=== PATIENT | male | born 1980 | race Caucasian/White ===

== ENCOUNTER 2021-05-04 09:51 | Emergency (ER) | payer SELFPAY ==
--- NOTE | 2021-05-04 11:21 | CR ---
Left foot: 4 views of the left foot were obtained. Comparison: No prior foot exam is available. Soft tissue swelling is noted around the fifth toe. No focal erosions are seen within the osseous structures. No acute fracture or other abnormality is appreciated. Impression: 1. Soft tissue swelling within the fifth toe. 2. No acute osseous abnormality is appreciated. Diagnostic code #2
[2021-05-04] MEDS ORDERED: cefTRIAXone 1 GM, Lidocaine 1% 2.1 ML IM ONE ×2 (13:00)
--- NOTE | 2021-05-04 13:08 | EDM.PDOC ---
ED HPI GENERAL MEDICAL PROBLEM - General Chief Complaint: Diabetic Complaint Stated Complaint: TOE INFECTION Time Seen by Provider: 05/04/21 10:16 Source of Information: Reports: Patient History Limitations: Reports: No Limitations - History of Present Illness INITIAL COMMENTS - FREE TEXT/NARRATIVE: The patient presents with a toe infection and elevated blood sugar. He went to the walk in clinic yesterday for an infection of his 5th and 4th left toes. He has no fever, chills or cough. They did labs and a culture. He was given some doxycycline but he did not get it picked up. They called him today to come to the ER because his blood sugar was 452. He has no increased thirst or urination. Onset: Gradual Duration: Day(s): Location: Reports: Lower Extremity, Left (5th and 4th toes) Quality: Reports: Ache Severity: Mild Improves with: Reports: None Worsens with: Reports: None Associated Symptoms: Reports: No Other Symptoms - Related Data Allergies Allergy/AdvReac Type Severity Reaction Status Date / Time No Known Allergies Allergy Verified 05/04/21 10:14 Home Meds: Home Meds Doxycycline [Vibra-Tabs] 100 mg PO BID 05/04/21 [History] Doxycycline [Vibra-Tabs] 100 mg PO Q12HR #20 tab 05/04/21 [Rx] Insulin Aspart [NovoLOG] 0 unit WITHMEALSANDBED 05/04/21 [History] Insulin Glarg,Human.Rec.Analog [Lantus] 60 units SQ DAILY 05/04/21 [History] atorvaSTATin Calcium [Lipitor] 20 mg PO DAILY 05/04/21 [History] metFORMIN [Glucophage XR] 1,000 mg PO BIDMEALS 05/04/21 [History] Past Medical History Cardiovascular History: Reports: High Cholesterol Endocrine/Metabolic History: Reports: Diabetes, Type I Social & Family History - Tobacco Use Tobacco Use Status *Q: Never Tobacco User ED ROS GENERAL - Review of Systems Review Of Systems: See Below Constitutional: Reports: No Symptoms HEENT: Reports: No Symptoms Respiratory: Reports: No Symptoms Cardiovascular: Reports: No Symptoms Endocrine: Reports: No Symptoms GI/Abdominal: Reports: No Symptoms : Reports: No Symptoms Musculoskeletal: Reports: Other (Left 5th anad 4th toe infections) ED EXAM GENERAL NO PERIP PULSE - Physical Exam Exam: See Below Exam Limited By: No Limitations General Appearance: Alert, No Apparent Distress Ears: Normal External Exam Nose: Normal Inspection Head: Atraumatic, Normocephalic Neck: Normal Inspection Respiratory/Chest: No Respiratory Distress, Lungs Clear, Normal Breath Sounds Cardiovascular: Regular Rate, Rhythm, No Edema, No Murmur GI/Abdominal: Soft, Non-Tender, No Organomegaly, No Mass Back Exam: Normal Inspection Extremities: Other (Erythema, edema and an ulcer to the left 5th toe. Erythema and some skin break down to the 4th left toe.) Course - Vital Signs Last Recorded V/S: Last Vital Signs Temp 98.5 F 05/04/21 10:16 Pulse 82 05/04/21 10:16 Resp 16 05/04/21 10:16 BP 144/92 H 05/04/21 10:16 Pulse Ox 99 05/04/21 10:16 - Orders/Labs/Meds Orders: Active Orders 24 hr Category Date Time Status Cardiac Monitoring [RC] . DIRECTED Care 05/04/21 10:46 Active C-REACTIVE PROTEIN [CHEM] Stat Lab 05/04/21 11:00 Results COMPREHENSIVE METABOLIC PN,CMP [CHEM] Stat Lab 05/04/21 11:00 Results OSMOLALITY,SERUM [CHEM] Stat Lab 05/04/21 11:00 Results cefTRIAXone 1 GM withLidocaine 1% 2.1 ML IM Onetime Med 05/04/21 13:00 Ordered cefTRIAXone [Rocephin] 1 gm Lidocaine 1% [Xylocaine 1%] 2.1 ml IM ONETIME Labs: Laboratory Tests 05/04/21 05/04/21 05/04/21 Range/Units 11:00 11:00 11:00 WBC 8.29 (4.23-9.07) K/mm3 RBC 5.81 (4.63-6.08) M/mm3 Hgb 16.9 (13.7-17.5) gm/dl Hct 48.7 (40.1-51.0) % MCV 83.8 (79.0-92.2) fl MCH 29.1 (25.7-32.2) pg MCHC 34.7 (32.2-35.5) g/dl RDW Std Deviation 38.6 (35.1-43.9) fL Plt Count 183 (163-337) K/mm3 MPV 11.3 (9.4-12.3) fl Neut % (Auto) 73.1 H (34.0-67.9) % Lymph % (Auto) 19.9 L (21.8-53.1) % [place] % (Auto) 6.2 (5.3-12.2) % Eos % (Auto) 0.5 L (0.8-7.0) Baso % (Auto) 0.2 (0.1-1.2) % Neut # (Auto) 6.06 H (1.78-5.38) K/mm3 Lymph # (Auto) 1.65 (1.32-3.57) K/mm3 [place] # (Auto) 0.51 (0.30-0.82) K/mm3 Eos # (Auto) 0.04 (0.04-0.54) K/mm3 Baso # (Auto) 0.02 (0.01-0.08) K/mm3 Sodium 138 (136-145) mEq/L Potassium 4.1 (3.5-5.1) mEq/L Chloride 99 (98-107) mEq/L Carbon Dioxide 31 (21-32) mEq/L Anion Gap 12.1 (5-15) BUN 16 (7-18) mg/dL Creatinine 0.9 (0.7-1.3) mg/dL Est Cr Clr Drug Dosing 133.95 mL/min Estimated GFR (MDRD) > 60 (>60) mL/min BUN/Creatinine Ratio 17.8 (14-18) Glucose 333 H (70-99) mg/dL Calcium 9.8 (8.5-10.1) mg/dL Total Bilirubin 0.5 (0.2-1.0) mg/dL AST 11 L (15-37) U/L ALT 23 (16-63) U/L Alkaline Phosphatase 103 (46-116) U/L C-Reactive Protein 1.2 H* (<1.0) mg/dL Total Protein 8.1 (6.4-8.2) g/dl Albumin 4.2 (3.4-5.0) g/dl Globulin 3.9 gm/dL Albumin/Globulin Ratio 1.1 (1-2) Ketones 0.20 (0.0-0.3) mM - Re-Assessments/Exams Free Text/Narrative Re-Assessment/Exam: 05/04/21 13:05 I ordered labs and an x-ray of his toes. The x-ray shows soft tissue swelling within the 5th toe. No acute osseous abnormality is appreciated. His CBC looks good. His glucose is elevated at 333. His CRP is elevated at 1.2. His ketones are 0.2. I have ordered rocephin 1 gram IM. I will also get him on some doxycycline and have him follow up with Dr Marquis. Departure - Departure Time of Disposition: 13:10 Disposition: Home, Self-Care 01 Condition: Good Clinical Impression: Hyperglycemia, Toe infection - Discharge Information *PRESCRIPTION DRUG MONITORING PROGRAM REVIEWED*: Not Applicable *COPY OF PRESCRIPTION DRUG MONITORING REPORT IN PATIENT MISSY: Not Applicable Prescriptions: Doxycycline [Vibra-Tabs] 100 mg PO Q12HR #20 tab Referrals: PCP,None [Primary Care Provider] - Jaun Marquis II, DPM [Physician] - 1 Week Additional Instructions: Take the doxycycline 2 times per day for 10 days. Take tylenol or motrin as needed for pain or fever. Soak your foot in warm soapy water 2 times per day and apply antibiotics ointment after. Follow up with Dr Marquis within a week. Please return if you are worse. Sepsis Event Note (ED) - Evaluation Sepsis Screening Result: No Definite Risk - Focused Exam Vital Signs: Vital Signs Temp Pulse Resp BP Pulse Ox 05/04/21 10:16 98.5 F 82 16 144/92 H 99 - My Orders Last 24 Hours: My Active Orders 05/04/21 10:46 Cardiac Monitoring [RC] . DIRECTED 05/04/21 11:00 C-REACTIVE PROTEIN [CHEM] Stat COMPREHENSIVE METABOLIC PN,CMP [CHEM] Stat OSMOLALITY,SERUM [CHEM] Stat 05/04/21 13:00 cefTRIAXone 1 GM withLidocaine 1% 2.1 ML IM Onetime cefTRIAXone [Rocephin] 1 gm Lidocaine 1% [Xylocaine 1%] 2.1 ml IM ONETIME - Assessment/Plan Last 24 Hours: My Active Orders 05/04/21 10:46 Cardiac Monitoring [RC] . DIRECTED 05/04/21 11:00 C-REACTIVE PROTEIN [CHEM] Stat COMPREHENSIVE METABOLIC PN,CMP [CHEM] Stat OSMOLALITY,SERUM [CHEM] Stat 05/04/21 13:00 cefTRIAXone 1 GM withLidocaine 1% 2.1 ML IM Onetime cefTRIAXone [Rocephin] 1 gm Lidocaine 1% [Xylocaine 1%] 2.1 ml IM ONETIME
== END 2021-05-04 14:00 | disposition home or self-care (01) ==
LOC: JD.ED 09:51
DX: L08.9 Local infection of the skin and subcutaneous tissue, unspecified (principal); E10.65 Type 1 diabetes mellitus with hyperglycemia; E10.621 Type 1 diabetes mellitus with foot ulcer; L97.521 Non-pressure chronic ulcer of other part of left foot limited to breakdown of skin; R60.0 Localized edema; E78.00 Pure hypercholesterolemia, unspecified
CPT/HCPCS: 36415; 73630; 80053; 82009; 83930; 85025; 86140; 96372; 99285; J0696

== ENCOUNTER 2021-05-16 10:18 | Emergency (ER) | payer SELFPAY ==
--- NOTE | 2021-05-16 11:30 | EDM.PDOC ---
ED HPI GENERAL MEDICAL PROBLEM - General Chief Complaint: Skin Complaint Stated Complaint: L FOOT SKIN COMPLAINT Time Seen by Provider: 05/16/21 11:30 Source of Information: Reports: Patient History Limitations: Reports: No Limitations - History of Present Illness INITIAL COMMENTS - FREE TEXT/NARRATIVE: 41-year-old male of [place] descent presents to the ED for evaluation of obvious infection lateral left foot dorsally. Patient is an insulin-dependent diabetic since age 5. He does not check his sugars on a regular basis and blood sugars have been over 400. He apparently had a blister develop on the lateral aspect of the left fifth toe a month ago and was seen through the ED and treated with doxycycline 100 mg twice daily for 10 days which did improve the infection cecile naima. However within the last 3 to 4 days the area has once again become infected. He does not have any systemic signs of illness such as fever chills nausea or vomiting. He is afebrile at the time of exam. He does have a component of peripheral neuropathy but states he still able to walk on his left foot. Patient is currently taking 60 units of Lantus insulin once daily at bedtime. Onset: Gradual Onset Date: 05/13/21 Duration: Day(s):, Getting Worse Location: Reports: Lower Extremity, Left (Left lateral foot starting presumably from left fifth toe ulceration which started out as a blister.) Quality: Reports: Ache Severity: Moderate (Current pain is rated as a 3 out of 10) Improves with: Reports: None Worsens with: Reports: Other Context: Reports: Trauma (Small trauma from work boots.). Denies: Activity (Walking on his leg makes it worse), Exercise, Lifting, Sick Contact, Other Associated Symptoms: Reports: No Other Symptoms. Denies: Confusion, Chest Pain, Cough, cough w sputum, Diaphoresis, Fever/Chills, Headaches, Loss of Appetite, Malaise, Nausea/Vomiting, Rash, Shortness of Breath, Syncope Treatments HEAD ESTHETICIAN: Reports: Acetaminophen, NSAIDS - Related Data Allergies Allergy/AdvReac Type Severity Reaction Status Date / Time No Known Allergies Allergy Verified 05/16/21 12:49 Home Meds: Home Meds Doxycycline [Vibra-Tabs] 100 mg PO Q12HR #20 tab 05/04/21 [Rx] Insulin Glarg,Human.Rec.Analog [Lantus] 60 units SQ DAILY 05/04/21 [History] atorvaSTATin Calcium [Lipitor] 20 mg PO DAILY 05/04/21 [History] metFORMIN [Glucophage XR] 1,000 mg PO BIDMEALS 05/04/21 [History] Past Medical History Cardiovascular History: Reports: High Cholesterol Endocrine/Metabolic History: Reports: Diabetes, Type I Social & Family History - Living Situation & Occupation Living situation: Reports: Occupation: Employed ED ROS GENERAL - Review of Systems Review Of Systems: See Below Constitutional: Reports: Fatigue. Denies: Fever, Chills, Malaise, Weakness, Decreased Appetite, Weight Loss HEENT: Reports: No Symptoms Respiratory: Reports: No Symptoms Cardiovascular: Reports: No Symptoms Endocrine: Reports: Fatigue, High Glucose GI/Abdominal: Reports: No Symptoms : Reports: Frequency, Other (Nocturia x2) Musculoskeletal: Reports: Foot Pain (Left lateral foot pain with obvious infection cellulitis dorsal lateral foot) Skin: Reports: Rash, Erythema (Dorsal lateral left foot), Other (Swelling and slight bluish discoloration of his left fifth toe) Neurological: Reports: Other (Clinically has mild bilateral peripheral neuropathy both lower extremities) Psychiatric: Reports: No Symptoms Hematologic/Lymphatic: Reports: No Symptoms Immunologic: Reports: No Symptoms ED EXAM, SKIN/RASH Exam: See Below Exam Limited By: No Limitations General Appearance: Alert, WD/WN, No Apparent Distress, Other (Temperature is 37.0 with a heart rate of 85 and sinus. Respiratory is 18 BP is one 813/87. O2 sats 100% room air) Eye Exam: Bilateral Eye: Normal Inspection (No blepharal pallor or scleral icterus), PERRL Respiratory/Chest: No Respiratory Distress, Lungs Clear, Normal Breath Sounds, No Accessory Muscle Use Cardiovascular: Normal Peripheral Pulses, Regular Rate, Rhythm, No Edema, No Murmur, No Rub Peripheral Pulses: 2+: Posterior Tibial (L), Posterior Tibial (R), Dorsalis Pedis (L), Dorsalis Pedis (R) GI/Abdominal: Normal Bowel Sounds, Soft, Non-Tender, No Organomegaly, No Abnormal Bruit, No Mass Extremities: Other (Examination of his left foot shows swelling of the entire left fifth digit with slight bluish discoloration of the tip. There is some oozing of blood from the lateral aspect of the left fifth toe. There is obvious erythema swelling dorsal aspect of the left foot approximately 6 cm from the fifth M) Neurological: Alert, Oriented, CN II-XII Intact, Normal Cognition, Other (Mild) Psychiatric: Normal Affect ( peripheral neuropathy both lower extremities), Normal Mood Skin: Warm, Dry, Erythema, Increased Warmth (Dorsal lateral left foot compound with cellulitis and infection dorsal lateral left foot approximately 6 cm from the fifth MTP joint and extends to midfoot dorsally). No: Intact Location, Skin: Lower Extremity, Left (Left dorsal lateral foot), Other (All of his toes have evidence of skin shedding this is secondary to excessive moisture in his work boots and he is going to need to change his socks twice daily to prevent further skin breakdown.) Characteristics: Macular, Erythematous Associated features: Warmth, Tenderness, Swelling Course - Vital Signs Last Recorded V/S: Last Vital Signs Temp 37.0 C 05/16/21 11:11 Pulse 85 05/16/21 11:11 Resp 18 05/16/21 11:11 BP 113/87 05/16/21 11:11 Pulse Ox 100 05/16/21 11:11 - Orders/Labs/Meds Orders: Active Orders 24 hr Category Date Time Status Foot w Cont Lt [CT] Stat Exams 05/16/21 11:52 Taken CULTURE, ANAEROBE & AEROBE [MREF] Stat Lab 05/16/21 12:45 Received Labs: Laboratory Tests 05/16/21 05/16/21 05/16/21 Range/Units 11:27 11:30 11:30 WBC 11.38 H (4.23-9.07) K/mm3 RBC 5.36 (4.63-6.08) M/mm3 Hgb 15.7 (13.7-17.5) gm/dl Hct 45.5 (40.1-51.0) % MCV 84.9 (79.0-92.2) fl MCH 29.3 (25.7-32.2) pg MCHC 34.5 (32.2-35.5) g/dl RDW Std Deviation 38.1 (35.1-43.9) fL Plt Count 221 (163-337) K/mm3 MPV 10.5 (9.4-12.3) fl Neutrophils % (Manual) 85 H (40-60) % Band Neutrophils % 1 (0-10) % Lymphocytes % (Manual) 13 L (20-40) % Atypical Lymphs % 0 % Monocytes % (Manual) 1 L (2-10) % Eosinophils % (Manual) 0 L (0.8-7.0) % Basophils % (Manual) 0 L (0.2-1.2) Platelet Estimate Adequate RBC Morph Comment Normal ESR (0-15) mm/hr Sodium 136 (136-145) mEq/L Potassium 4.2 (3.5-5.1) mEq/L Chloride 99 (98-107) mEq/L Carbon Dioxide 27 (21-32) mEq/L Anion Gap 14.2 (5-15) BUN 12 (7-18) mg/dL Creatinine 0.9 (0.7-1.3) mg/dL Est Cr Clr Drug Dosing 133.95 mL/min Estimated GFR (MDRD) > 60 (>60) mL/min BUN/Creatinine Ratio 13.3 L (14-18) Glucose 262 H (70-99) mg/dL POC Glucose 261 H (70-99) mg/dL Hemoglobin A1c ( - 5.6) % Calcium 9.4 (8.5-10.1) mg/dL Magnesium 2.0 (1.8-2.4) mg/dL Total Bilirubin 0.5 (0.2-1.0) mg/dL AST 11 L (15-37) U/L ALT 23 (16-63) U/L Alkaline Phosphatase 84 (46-116) U/L C-Reactive Protein 9.0 H* (<1.0) mg/dL NT-Pro-B Natriuret Pep (0-125) pg/mL Total Protein 8.2 (6.4-8.2) g/dl Albumin 3.7 (3.4-5.0) g/dl Globulin 4.5 gm/dL Albumin/Globulin Ratio 0.8 L (1-2) Urine Color (Yellow) Urine Appearance (Clear) Urine pH (5.0-8.0) Ur Specific [place] (1.005-1.030) Urine Protein (Negative) Urine Glucose (UA) (Negative) Urine Ketones (Negative) Urine Occult Blood (Negative) Urine Nitrite (Negative) Urine Bilirubin (Negative) Urine Urobilinogen (0.2-1.0) Ur Leukocyte Esterase (Negative) Urine RBC (0-5) /hpf Urine WBC (0-5) /hpf Ur Squamous Epith Cells (0-5) /hpf Urine Bacteria (FEW) /hpf Urine Mucus (FEW) /hpf SARS-CoV-2 RNA (WANDER) (NEGATIVE) 05/16/21 05/16/21 05/16/21 Range/Units 11:30 11:30 11:30 WBC (4.23-9.07) K/mm3 RBC (4.63-6.08) M/mm3 Hgb (13.7-17.5) gm/dl Hct (40.1-51.0) % MCV (79.0-92.2) fl MCH (25.7-32.2) pg MCHC (32.2-35.5) g/dl RDW Std Deviation (35.1-43.9) fL Plt Count (163-337) K/mm3 MPV (9.4-12.3) fl Neutrophils % (Manual) (40-60) % Band Neutrophils % (0-10) % Lymphocytes % (Manual) (20-40) % Atypical Lymphs % % Monocytes % (Manual) (2-10) % Eosinophils % (Manual) (0.8-7.0) % Basophils % (Manual) (0.2-1.2) Platelet Estimate RBC Morph Comment ESR 38 H (0-15) mm/hr Sodium (136-145) mEq/L Potassium (3.5-5.1) mEq/L Chloride (98-107) mEq/L Carbon Dioxide (21-32) mEq/L Anion Gap (5-15) BUN (7-18) mg/dL Creatinine (0.7-1.3) mg/dL Est Cr Clr Drug Dosing mL/min Estimated GFR (MDRD) (>60) mL/min BUN/Creatinine Ratio (14-18) Glucose (70-99) mg/dL POC Glucose (70-99) mg/dL Hemoglobin A1c 11.0 H ( - 5.6) % Calcium (8.5-10.1) mg/dL Magnesium (1.8-2.4) mg/dL Total Bilirubin (0.2-1.0) mg/dL AST (15-37) U/L ALT (16-63) U/L Alkaline Phosphatase (46-116) U/L C-Reactive Protein (<1.0) mg/dL NT-Pro-B Natriuret Pep 49 (0-125) pg/mL Total Protein (6.4-8.2) g/dl Albumin (3.4-5.0) g/dl Globulin gm/dL Albumin/Globulin Ratio (1-2) Urine Color (Yellow) Urine Appearance (Clear) Urine pH (5.0-8.0) Ur Specific [place] (1.005-1.030) Urine Protein (Negative) Urine Glucose (UA) (Negative) Urine Ketones (Negative) Urine Occult Blood (Negative) Urine Nitrite (Negative) Urine Bilirubin (Negative) Urine Urobilinogen (0.2-1.0) Ur Leukocyte Esterase (Negative) Urine RBC (0-5) /hpf Urine WBC (0-5) /hpf Ur Squamous Epith Cells (0-5) /hpf Urine Bacteria (FEW) /hpf Urine Mucus (FEW) /hpf SARS-CoV-2 RNA (WANDER) (NEGATIVE) 05/16/21 05/16/21 Range/Units 12:50 13:02 WBC (4.23-9.07) K/mm3 RBC (4.63-6.08) M/mm3 Hgb (13.7-17.5) gm/dl Hct (40.1-51.0) % MCV (79.0-92.2) fl MCH (25.7-32.2) pg MCHC (32.2-35.5) g/dl RDW Std Deviation (35.1-43.9) fL Plt Count (163-337) K/mm3 MPV (9.4-12.3) fl Neutrophils % (Manual) (40-60) % Band Neutrophils % (0-10) % Lymphocytes % (Manual) (20-40) % Atypical Lymphs % % Monocytes % (Manual) (2-10) % Eosinophils % (Manual) (0.8-7.0) % Basophils % (Manual) (0.2-1.2) Platelet Estimate RBC Morph Comment ESR (0-15) mm/hr Sodium (136-145) mEq/L Potassium (3.5-5.1) mEq/L Chloride (98-107) mEq/L Carbon Dioxide (21-32) mEq/L Anion Gap (5-15) BUN (7-18) mg/dL Creatinine (0.7-1.3) mg/dL Est Cr Clr Drug Dosing mL/min Estimated GFR (MDRD) (>60) mL/min BUN/Creatinine Ratio (14-18) Glucose (70-99) mg/dL POC Glucose (70-99) mg/dL Hemoglobin A1c ( - 5.6) % Calcium (8.5-10.1) mg/dL Magnesium (1.8-2.4) mg/dL Total Bilirubin (0.2-1.0) mg/dL AST (15-37) U/L ALT (16-63) U/L Alkaline Phosphatase (46-116) U/L C-Reactive Protein (<1.0) mg/dL NT-Pro-B Natriuret Pep (0-125) pg/mL Total Protein (6.4-8.2) g/dl Albumin (3.4-5.0) g/dl Globulin gm/dL Albumin/Globulin Ratio (1-2) Urine Color Yellow (Yellow) Urine Appearance Clear (Clear) Urine pH 6.0 (5.0-8.0) Ur Specific [place] 1.020 (1.005-1.030) Urine Protein 1+ H (Negative) Urine Glucose (UA) 2+ H (Negative) Urine Ketones Negative (Negative) Urine Occult Blood Trace-lysed H (Negative) Urine Nitrite Negative (Negative) Urine Bilirubin Negative (Negative) Urine Urobilinogen 0.2 (0.2-1.0) Ur Leukocyte Esterase Negative (Negative) Urine RBC 0-5 (0-5) /hpf Urine WBC 0-5 (0-5) /hpf Ur Squamous Epith Cells 0-5 (0-5) /hpf Urine Bacteria Not seen (FEW) /hpf Urine Mucus Not seen (FEW) /hpf SARS-CoV-2 RNA (WANDER) Negative (NEGATIVE) Meds: Medications Discontinued Medications Generic Name Dose Route Start Last Admin Trade Name Freq PRN Reason Stop Dose Admin Ceftriaxone Sodium 2 gm/ 100 mls @ 200 mls/hr 05/16/21 11:50 05/16/21 12:10 Sodium Chloride IV 05/16/21 12:19 200 mls/hr ONETIME ONE Administration Metronidazole 500 mg/ Premix 100 mls @ 100 mls/hr 05/16/21 13:04 05/16/21 13:20 IV 05/16/21 14:03 100 mls/hr ONETIME ONE Administration Iopamidol 100 ml 05/16/21 12:25 05/16/21 12:26 Iopamidol 612 Mg/Ml 100 Ml Bottle IVPUSH 05/16/21 12:26 100 ml ONETIME ONE Administration Iopamidol 50 ml 05/16/21 12:25 05/16/21 12:26 Iopamidol 612 Mg/Ml 50 Ml Sdv IVPUSH 05/16/21 12:26 25 ml ONETIME ONE Administration Sodium Chloride 10 ml 05/16/21 12:25 05/16/21 12:26 Sodium Chloride 0.9% 10 Ml Syringe FLUSH 05/16/21 12:26 10 ml ONETIME ONE Administration - Radiology Interpretation Free Text/Narrative:: 41-year-old male with insulin-dependent diabetes for 36 years presents to the ED with obvious cellulitis left dorsal lateral foot. Started out as a blister left lateral fifth toe a month ago and was treated successfully with antibiotics. However the blister is left him with an ulcerated area left lateral toe which has become reinfected. The left fifth toe is swollen and bluish in color. It appears to be the nidus for the source of his infection dorsal lateral left foot with cellulitis traveling approximately 6 cm from the fifth MTP joint dorsally and go across to the mid left foot. No lymphangitis up the leg is evident. Plan Rocephin 2 g IV. Routine labs to be obtained. Wound cultures will be obtained for anaerobic and aerobic infection. Will be soaked in 10% Betadine solution. CT of the left foot will be obtained to rule out osteomyelitis. - Re-Assessments/Exams Free Text/Narrative Re-Assessment/Exam: 05/16/21 12:46 CT of the Lt foot has been done without contrast. It appears to show air surrounding the distal phalanx of the left fifth toe with loss of bone structure compatible with osteomyelitis. There is gas surrounding the entire distal phalanx of the toe.T there appears to be an ulceration laterally that does travel down to the cortex of the bone in this area. I will await formal radiology over read. 05/16/21 12:54 White count is mildly elevated at 11.38 with 85% neutrophils and 1% bands cells. Hemoglobin is 15.7 with hematocrit of 45.5. Platelet count is 221,000. Sed rate is 38. Sodium 136 with a potassium of 4.2. Chloride 99 with a bicarb of 27. Anion gap is 14.2. BUN is 12 with a creatinine of 0.9 and GFR greater than 60. Glucose is 262 bedside glucose was 261. Calcium was 9.4 magnesium 2.0 total bilirubin is 0.5 liver function is otherwise normal C- reactive protein is elevated at 9.0. BNP was 49 with a total protein of 8.2 and an albumin fraction of 3.7 05/16/21 12:59 over read by [facility] radiology CT of left foot has now been done. They identified there is destruction and lysis of the proximal phalanx of the fifth toe. Second through fourth hammertoe deformities. There is air present within the bone of the proximal phalanx and the distal phalanx of the fifth toe. Soft tissues lateral and distal soft tissue swelling around the foot and toe. Air present in the soft tissues of the fifth toe no focal fluid collection or abscess within the soft tissues. Hemoglobin A1c came back at 11.0 indicating very poor control of his diabetes. I am going to add Flagyl 500 mg IV to his antibiotic treatment plan 05/16/21 13:25: I was able to speak to Dr. Sesay--service loss control consultant at [facility] through the 1 call service. He agrees with the amount of destruction of the bone and air suggesting early gas gangrene the patient should attend the hospital with a view to admission. Dr. Jake alonzo has accepted care. Patient will be sent to that facility per ground ambulance since we do not have ambulance transport availability today. We will wait for his Covid 19 screen status to come back first.Urinalysis shows 1+ proteinuria 2+ glucosuria and trace of lysed occult blood. No signs of infection 05/16/21 14:20: COVID-19 screen is negative. Patient will therefore be transferred by private vehicle to [facility] in [place] for definitive management of his osteomyelitis of his left fifth toe Departure - Departure Time of Disposition: 14:20 Disposition: DC/Tfer to Acute Hospital 02 Condition: Fair Clinical Impression: Osteomyelitis due to type 1 diabetes mellitus, Toe infection - Discharge Information *PRESCRIPTION DRUG MONITORING PROGRAM REVIEWED*: Not Applicable *COPY OF PRESCRIPTION DRUG MONITORING REPORT IN PATIENT MISSY: Not Applicable Instructions: Osteomyelitis, Adult Referrals: PCP,None [Primary Care Provider] - Forms: ED Department Discharge Additional Instructions: Travel to [facility] in [place] to be admitted to the hospital under the care of hospitalist Dr. Joseph. You required aggressive management of infection in the bone of your left fifth toe which appears to be showing early gas gangrene. Sepsis Event Note (ED) - Focused Exam Vital Signs: Vital Signs Temp Pulse Resp BP Pulse Ox 05/16/21 11:11 37.0 C 85 18 113/87 100 - My Orders Last 24 Hours: My Active Orders 05/16/21 11:52 Foot w Cont Lt [CT] Stat 05/16/21 12:45 CULTURE, ANAEROBE & AEROBE [MREF] Stat - Assessment/Plan Last 24 Hours: My Active Orders 05/16/21 11:52 Foot w Cont Lt [CT] Stat 05/16/21 12:45 CULTURE, ANAEROBE & AEROBE [MREF] Stat
[2021-05-16] MEDS ORDERED: cefTRIAXone 2 GM in Sodium Chloride 0.9% 100 ML IV ONE (11:50)
[2021-05-16] MEDS ORDERED: Iopamidol 612 MG/ML 50 ML SDV IVPUSH ONE (12:25)
[2021-05-16] MEDS ORDERED: Sodium Chloride 0.9% 10 ML Syringe FLUSH ONE (12:25)
[2021-05-16] MEDS ORDERED: Iopamidol 612 MG/ML 100 ML Bottle IVPUSH ONE (12:25)
[2021-05-16] MEDS ORDERED: metroNIDAZOLE/Normal Saline 500 MG in Premix Bag 1 BAG IV ONE (13:04)
--- NOTE | 2021-05-16 18:00 | CT ---
CT left foot Technique: Multiple axial sections through the left foot were obtained. Reconstructed coronal and sagittal images were also obtained. Comparison: Prior left foot study of 05/04/21. Findings: Soft tissue swelling is seen within the fifth toe. Soft tissue swelling also extends slightly more proximal. There is air being seen within the soft tissues of the fifth toe. There is a fracture being seen within the distal aspect of the proximal phalanx with some bony destruction compatible with osteomyelitis. Slight air is noted within the distal phalanx of the fifth toe compatible with additional osteomyelitis. No other bony destruction is seen. No additional fracture or other abnormality is noted. Impression: 1. 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 Soft tissue swelling also extends slightly proximal. 2. Osteomyelitis within the fifth toe mostly involving the proximal phalanx with fracture and bony destruction. Diagnostic code #5 I agree with preliminary report from [facility] finalized on 05/16/21, 1:57 PM CDT, code 1
== END 2021-05-16 14:30 ==
LOC: JD.ED 10:18
DX: L08.9 Local infection of the skin and subcutaneous tissue, unspecified (principal); E10.69 Type 1 diabetes mellitus with other specified complication; M86.9 Osteomyelitis, unspecified; E78.00 Pure hypercholesterolemia, unspecified; Z79.84 Long term (current) use of oral hypoglycemic drugs; Z79.899 Other long term (current) drug therapy; Z20.822 Contact with and (suspected) exposure to COVID-19
CPT/HCPCS: 36415; 73701; 80053; 81001; 82947; 83036; 83735; 83880; 85007; 85027; 85652; 86140; 87070; 87075; 87205; 87635; 96365; 96367; 99285; J0696; J3490; Q9967; 87077; 87186; U0002